=== PATIENT | male | born 1990 | race African-American/Black ===

== ENCOUNTER 2023-07-17 09:04 | Outpatient (AMB) | payer MEDICARE, SELFPAY ==
--- NOTE | 2023-07-17 09:32 | A.OFFVIS_ITS ---
VS Expanded 07/17/23 09:33 07/24/23 12:30 Height 5 ft 9 in 5 ft 9 in Weight 255 lb 4.725 oz 255 lb BMI 37.7 37.7 Intake Visit Reasons: Obesity/ CONFIRMED Nutrition Presentation Details: Pt presents for MNT f/u for obesity. The Pt was referred by Dr. 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 reports Pt has increased appetite and is constantly eating at any given time Pt verbalizes foods lower in calories/vegetables Reports not recognizing hunger as the majority of the time has increased appetite BS Monitoring Most Recent Diabetes Results: No Data to Display DXX-Cqovrvt-Ml.Averyor Equation Height: 5 ft 9 in Weight: 255 lb Resting Metabolic Rate: 2098.44 Calculated Activity Level: Sedentary Calories Needed to Maintain Weight: 2518.13 Diagnosis Nutrition problem #1: excessive energy intake As related to (etiology) #1: diagnosis As evidenced by (sign/symptom) #1: high BMI (37.7 on 07/2023) Monitoring/Goals Nutrition problem monitoring: weight and oral fluids [facility] Medical History (Updated 07/24/23 @ 12:45 by Radha Snyder, RD, LDN) GERD (gastroesophageal reflux disease) ADHD Assessment & Plan Assessment & Plan (1) Obesity (BMI 30-39.9): Code(s): E66.9 - Obesity, unspecified Category: Medical Plan: Wt: 116 Kg ( 07/2023 ) Est kcal needs as per MSJ: 2500 (40% carb, 30% protein/fat) Est fluid needs as per 30 ml/d: 3500 Est prot per day as per 1 g/kg bw: 116 Recommend fiber intake : 8-10 g per day and gradually increase to 25-28 g per day for women and 35-38 g for men or as tolerated Recommend sodium intake per day : less than 1500 mg less than 2000 mg Educated patient on: ( R = reviewed V = verbalizes understanding N/R = needs review N/A = not applicable * Food sources of carbohydrate, adequate serving sizes and its role in various health conditions: R * Differences between complex carbohydrates a simple carbohydrates, role of fiber in diet: R V N/R * Lean protein sources of foods: R V NR * Differences between types of fats and role in diet (mono on saturated fat fatty acids, saturated fatty acids, trans fats): R V N/R * Food sources of sodium in salt and healthy modifications for heart health in kidney health: R V R/V * Vitamins and minerals: R V N/R * Healthy plate method concept: R V N/R * Physical activity: Benefits a precaution: R V N/R * Hypoglycemia protocol (rule of 15): R V N/R * Dietary prevention of Hyperglycemia: R V R/V * mindful eating: R * hydration: R * lower sugar options: R Patient Instructions: Have 3 scheduled meals and 3 snack working on reducing portion sizes and following healthy plate method Chew foods well , Drink water with meals, ok herb/fruit infused water Engage in physical activity Coding Level of Care Code Nutr Indiv Intake (76436) Diagnoses Obesity (BMI 30-39.9) E66.9 Time Spent (min) 30
[2023-07-17 09:33] VITALS: BMI 37.7
[2023-07-24 12:30] VITALS: BMI 37.7
== END 2023-07-17 10:35 | disposition home or self-care (01) ==
PROVIDERS: PCP Internal Medicine; Visit Provider Dietitian, Registered
DX: E66.9 Obesity, unspecified (principal)

== ENCOUNTER → 2023-07-17 09:04 | Outpatient (BNVA) | payer MEDICARE, SELFPAY | PROVIDERS: PCP Internal Medicine; Visit Provider Dietitian, Registered | DX: E66.9 Obesity, unspecified (principal); Z68.37 Body mass index [BMI] 37.0-37.9, adult; Z71.3 Dietary counseling and surveillance | CPT/HCPCS: 97802 ==

== ENCOUNTER 2023-08-28 09:39 | Outpatient (AMB) | payer MEDICARE, SELFPAY ==
[2023-08-28 10:17] VITALS: BMI 37.6
--- NOTE | 2023-08-28 10:17 | A.OFFVIS_ITS ---
VS Expanded 08/28/23 10:17 Height 5 ft 9 in Weight 254 lb 10.142 oz BMI 37.6 Intake Visit Reasons: Pre-DM/LVM Nutrition Presentation Details: Pt presents for MNT f/u for obesity. Pt presents with complex care nurse practitioner during this appointment taker off braker machine reports Working on keeping an eating schedule and providing salads prior to meals. Pt reports enjoying the meals Breakfast B:cereal with 2% milk and banana L: salad and sandwich with vegetables, fruit and milk 2% D: vegetables, rice/chicken or burger and fruit , sariah l snack: low sugar cereal or yogurt or 1/2 sand other snack low sugar Popsicle Pt denies constipation/diarrhea physical activity : on - walking /treadmill BS Monitoring Most Recent Diabetes Results: No Data to Display [facility] Medical History (Updated 07/24/23 @ 12:45 by Radha Snyder, RD, LDN) GERD (gastroesophageal reflux disease) ADHD Assessment & Plan Assessment & Plan (1) Obesity (BMI 30-39.9): Code(s): E66.9 - Obesity, unspecified Category: Medical Plan: Wt: 116 Kg ( 07/2023 ), 116kg (08/2023) Est kcal needs as per MSJ: 2500 (40% carb, 30% protein/fat) Est fluid needs as per 30 ml/d: 3500 Est prot per day as per 1 g/kg bw: 116 Recommend fiber intake : 8-10 g per day and gradually increase to 25-28 g per day for women and 35-38 g for men or as tolerated Recommend sodium intake per day : less than 1500 mg less than 2000 mg Educated patient on: ( R = reviewed V = verbalizes understanding N/R = needs review N/A = not applicable * Food sources of carbohydrate, adequate serving sizes and its role in various health conditions: R * Differences between complex carbohydrates a simple carbohydrates, role of fiber in diet: R V N/R * Lean protein sources of foods: R V NR * Differences between types of fats and role in diet (mono on saturated fat fatty acids, saturated fatty acids, trans fats): R V N/R * Food sources of sodium in salt and healthy modifications for heart health in kidney health: R V R/V * Vitamins and minerals: R V N/R * Healthy plate method concept: R V N/R * Physical activity: Benefits a precaution: R V N/R * Hypoglycemia protocol (rule of 15): R V N/R * Dietary prevention of Hyperglycemia: R V R/V * mindful eating: R * hydration: R * lower sugar options: R Patient Instructions: Continue working on meal schedule Work on Reducing on amount of fat in the foods (dilute dressings with vinegar and water , reduce on amount of butter/sourcream, cheese/sauces and the like, removing skin, reducing on fried foods items) Increase in physical activity, waking 2 times a week instead of once/week Coding Level of Care Code Nutr Indiv Subseq (61923) Diagnoses Obesity (BMI 30-39.9) E66.9 Time Spent (min) 30
== END 2023-08-28 10:47 | disposition home or self-care (01) ==
PROVIDERS: PCP Internal Medicine; Visit Provider Dietitian, Registered
DX: E66.9 Obesity, unspecified (principal)

== ENCOUNTER → 2023-08-28 09:39 | Outpatient (BNVA) | payer MEDICARE, SELFPAY | PROVIDERS: PCP Internal Medicine; Visit Provider Dietitian, Registered | DX: R73.03 Prediabetes (principal); E66.9 Obesity, unspecified; Z68.37 Body mass index [BMI] 37.0-37.9, adult; Z71.3 Dietary counseling and surveillance | CPT/HCPCS: 97803 ==

== ENCOUNTER 2023-10-02 10:13 | Outpatient (AMB) | payer MEDICARE, SELFPAY ==
[2023-10-02 10:34] VITALS: BMI 37.7
--- NOTE | 2023-10-02 10:34 | A.OFFVIS_ITS ---
VS Expanded 10/02/23 10:34 Height 5 ft 9 in Weight 255 lb 8.252 oz BMI 37.7 Intake Visit Reasons: Obesity-lvm Nutrition Presentation Details: Pt presents for mNT f/u for obesity Pt reports working on having set meal times /snacks Having salads/increased fiber in the meals Lately keeping sedentary , none additional activity after work BS Monitoring Most Recent Diabetes Results: No Data to Display [facility] Medical History (Updated 07/24/23 @ 12:[address], LDN) GERD (gastroesophageal reflux disease) ADHD Assessment & Plan Assessment & Plan (1) Obesity (BMI 30-39.9): Code(s): E66.9 - Obesity, unspecified Category: Medical Plan: Wt: 116 Kg ( 07/2023 ), 116kg (08/2023), 115 (09/2023) Est kcal needs as per MSJ: 2500 (40% carb, 30% protein/fat) Est fluid needs as per 30 ml/d: 3500 Est prot per day as per 1 g/kg bw: 116 Recommend fiber intake : 8-10 g per day and gradually increase to 25-28 g per day for women and 35-38 g for men or as tolerated Recommend sodium intake per day : less than 1500 mg less than 2000 mg Educated patient on: ( R = reviewed V = verbalizes understanding N/R = needs review N/A = not applicable * Food sources of carbohydrate, adequate serving sizes and its role in various health conditions: R * Differences between complex carbohydrates a simple carbohydrates, role of fiber in diet: R V N/R * Lean protein sources of foods: R V NR * Differences between types of fats and role in diet (mono on saturated fat fatty acids, saturated fatty acids, trans fats): R V N/R * Food sources of sodium in salt and healthy modifications for heart health in kidney health: R V R/V * Vitamins and minerals: R V N/R * Healthy plate method concept: R V N/R * Physical activity: Benefits a precaution: R V N/R * Hypoglycemia protocol (rule of 15): R V N/R * Dietary prevention of Hyperglycemia: R V R/V * mindful eating: R * hydration: R * lower sugar options: R Patient Instructions: walk once a day for 45 min to 1 hour in the evening Continue working on setting meal time/snack time, allowing body to wait until meal/snack time Coding Level of Care Code Nutr Indiv Subseq (18979) Diagnoses Obesity (BMI 30-39.9) E66.9 Time Spent (min) 30
== END 2023-10-02 11:07 | disposition home or self-care (01) ==
PROVIDERS: PCP Internal Medicine; Visit Provider Dietitian, Registered
DX: E66.9 Obesity, unspecified (principal)

== ENCOUNTER → 2023-10-02 10:13 | Outpatient (BNVA) | payer MEDICARE, SELFPAY | PROVIDERS: PCP Internal Medicine; Visit Provider Dietitian, Registered | DX: E66.9 Obesity, unspecified (principal); Z68.37 Body mass index [BMI] 37.0-37.9, adult; Z71.3 Dietary counseling and surveillance | CPT/HCPCS: 97803 ==

== ENCOUNTER 2024-01-10 09:49 | Outpatient (AMB) | payer MEDICARE, SELFPAY ==
[2024-01-10 10:30] VITALS: BMI 35.8
--- NOTE | 2024-01-10 10:30 | A.OFFVIS_ITS ---
VS Expanded 01/10/24 10:30 Height 5 ft 9 in Weight 242 lb 4.608 oz BMI 35.8 Intake Visit Reasons: Obesity/CONFIRMED Nutrition Presentation Details: Pt presents for MNT for f/u for obesity. Pt has T2DM and is currenlty on mtformin 1000 mg twice/day Staff reports Pt bg after meals are less thn 130 , working on reducing on pastries and sugary foods. Pt is trying and doing well. BS Monitoring Most Recent Diabetes Results: No Data to Display [facility] Medical History (Updated 07/24/23 @ 12:[address], LDN) GERD (gastroesophageal reflux disease) ADHD Assessment & Plan Assessment & Plan (1) Obesity (BMI 30-39.9): Code(s): E66.9 - Obesity, unspecified Category: Medical Plan: Wt: 116 Kg ( 07/2023 ), 116kg (08/2023), 115 (09/2023), 110 (01/26) Est kcal needs as per MSJ: 2500 (40% carb, 30% protein/fat) Est fluid needs as per 30 ml/d: 3500 Est prot per day as per 1 g/kg bw: 116 Recommend fiber intake : 8-10 g per day and gradually increase to 25-28 g per day for women and 35-38 g for men or as tolerated Recommend sodium intake per day : less than 1500 mg less than 2000 mg Educated patient on: ( R = reviewed V = verbalizes understanding N/R = needs review N/A = not applicable * Food sources of carbohydrate, adequate serving sizes and its role in various health conditions: R * Differences between complex carbohydrates a simple carbohydrates, role of fiber in diet: R V N/R * Lean protein sources of foods: R V NR * Differences between types of fats and role in diet (mono on saturated fat fatty acids, saturated fatty acids, trans fats): R V N/R * Food sources of sodium in salt and healthy modifications for heart health in kidney health: R V R/V * Vitamins and minerals: R V N/R * Healthy plate method concept: R V N/R * Physical activity: Benefits a precaution: R V N/R * Hypoglycemia protocol (rule of 15): R V N/R * Dietary prevention of Hyperglycemia: R * mindful eating: R * hydration: R * lower sugar options: R Patient Instructions: continue working on choosing high fiber foods (cucumbers, carrots, apples, pumpkin) REcommend PCP monitoring for b vitamin deficiency now that the Pt is on metformin Coding Level of Care Code Nutr Indiv Subseq (36233) Diagnoses Obesity (BMI 30-39.9) E66.9 Time Spent (min) 20
== END 2024-01-10 10:59 | disposition home or self-care (01) ==
LOC: HO.ENCR 09:50
PROVIDERS: PCP Internal Medicine; Visit Provider Dietitian, Registered
DX: E66.9 Obesity, unspecified (principal)

== ENCOUNTER → 2024-01-10 09:49 | Outpatient (BNVA) | payer MEDICARE, SELFPAY | PROVIDERS: PCP Internal Medicine; Visit Provider Dietitian, Registered | DX: E66.9 Obesity, unspecified (principal); Z68.35 Body mass index [BMI] 35.0-35.9, adult; Z71.3 Dietary counseling and surveillance | CPT/HCPCS: 97803 ==

== ENCOUNTER 2024-06-30 08:45 | Outpatient (AMB) | payer MEDICARE, SELFPAY ==
--- OUTSIDE RECORDS SUMMARY | 2024-06-30 09:17 | XMS_ITS | Clinical Summary ---
Author Organization [facility] [employer] [facility] Address [address] [place], [place] [address] Phone Care Team Providers Care Leather Fitter Name Role Phone Jeevan Marks MD Primary Care Provider [phone] Allergies No known active allergies Medications omega-3 fatty acids 500 mg capsule Take 1 capsule by mouth 2 (two) times a day with meals. 05/29/19 24 Active omeprazole (PriLOSEC) [address] capsule Take 1 capsule (20 mg total) by mouth 1 (one) time each day. 09/05/19 24 Active amitriptyline (ELAVIL) 25 mg tablet Take 1 tablet (25 mg total) by mouth at bedtime. 09/23/19 23 Active methylphenidate (Concerta) 18 mg ER tablet 11/14/19 23 Active methylphenidate (Concerta) 54 mg 24 hr tablet 11/14/19 23 Active blood-glucose meter kit glucose monitoring kit (FREESTYLE) monitoring kit Check sugars once daily E11.9, Disp-1 Kit, R-0, IOANA Active metFORMIN XR (GLUCOPHAGE-XR) 500 mg 24 hr tablet Take 2 tablets (1,000 mg total) by mouth 2 (two) times a day with meals. Active fluticasone propionate (FLONASE) 50 mcg/actuation nasal spray Administer 2 sprays into each nostril 1 (one) time each day. Active cetirizine (ZyrTEC) 10 mg tablet Take 1 tablet (10 mg total) by mouth 1 (one) time each day. Active rosuvastatin (CRESTOR) 10 mg tabletIndications:Pur e hyperglyceridemia TAKE 1 TABLET BY MOUTH ONCE DAILY 90 tablet 1 02/05/20 24 Active glucose blood test strip Check sugars once daily E11.9 100 each 2 03/20/19 25 Active freestyle (FreeStyle Lancets) 28 gauge lancets Check sugars once daily E11.9, Disp-100 Each, R-2, IOANA 100 each 2 03/20/19 25 Active triamcinolone (KENALOG) 0.1 % cream Apply to affected area 1-2 times daily as needed. Avoid face and groin. 30 g 1 05/08/19 25 026 Active Active Problems Problem Noted Date Diagnosed Date Chest pain 01/11/2024 Assessment & Plan (01/11/2024 10:54 AM EST): It is very hard to obtain a proper history from the patient. Not sure whether this pain is exertional or not. He is young but also has multiple risk factors including ongoing smoking, diabetes mellitus type 2 and hypertriglyceridemia. Consider an exercise stress test for him. Follow-up after the stress test. Orders: Exercise stress test; Future Tachycardia, unspecified 01/09/2024 Assessment & Plan (01/11/2024 10:54 AM EST): Sinus tachycardia. No atrial flutter or fibrillation on the 24-hour Holter monitor. Orders: ECG 12 lead LVH (left ventricular hypertrophy) 04/19/2023 Overview (12/04/2023): Mild. Inconsistent with CPAP Solis esophagus 03/19/2023 Assessment & Plan (05/07/2024 10:24 AM EST): Continue omeprazole. Pure hypertriglyceridemia 07/03/2022 Assessment & Plan (05/07/2024 10:24 AM EST): Continue current regimen of rosuvastatin and omega-3. Assessment & Plan (01/11/2024 10:54 AM EST): Total cholesterol and LDL levels are within normal limit but triglyceride level is elevated. This could be due to uncontrolled diabetes mellitus. Emphasized on dietary modification. Do not want to start on any statin at this time considering normal LDL and attempt for diabetes control with metformin. Obstructive sleep apnea 07/13/2021 Overview (12/04/2023): [facility] split-night polysomnogram 05/29/2021. Weight 236; BMI 35. AHI 113. 1 central apnea, 97 obstructive apneas and 88 hypopneas. Average oxygen saturation 91% with oxygen humaira 76%. Interpretation of CPAP treatment portion of study: Obstructive sleep apnea was resolved with CPAP at pressures of 10 and 12. Obstructive sleep apnea-severe with mostly obstructive apneas and hypopneas; CPAP at 12 recommended based on 2021 split-night polysomnogram. Gastroesophageal reflux disease 04/16/2019 ADHD 04/10/2017 Overview (12/04/2023): Dx age 3 Methylphenidate, rohit oseguera Type 2 diabetes mellitus wit h hyperglycemia (CMS/[facility] V24, CMS/[facility] V28) Assessment & Plan (05/07/2024 10:24 AM EST): Diabetes stable. Continue current med of metformin. Followed up with endocrinology. Encounters Date Type Department Care Team Description 05/07/2024 9:45 AM EST Office Visit Internal Medicine - [address] [address] Jeevan Marks MD MILTON (obstructive sleep apnea) (Primary Dx); Type 2 diabetes mellitus with hyperglycemia, without long-term current use of insulin (CMS/[facility] V24, CMS/[facility] V28); Pure hypertriglyceridemia; Solis's esophagus without dysplasia; Skin rash; Immunization due from Last 3 Months Immunizations Name Administration Dates Next Due Influenza Quadravalent, MDCK , 0.5ml, preservative free (Flucelvax) 6mo and older 02/07/2023,12/31/2017 Influenza trivalent, MDCK, 0 .5mL, preservative free (Flucelvax) 6mo and older 05/07/2024 Influenza, Unspecified 11/17/2020 Tdap Tetanus diptheria acell ular pertussis (Boostrix; Adacel) 7yo and older 12/31/2017 Medical History Medical History Date Comments LVH (left ventricular hypertrophy) GERD (gastroesophageal reflux disease) Hypertriglyceridemia Sleep apnea Solis esophagus Adhd [id number] transgender person Has not undergone surgery MILTON (obstructive sleep apnea) Social History Tobacco Use Types Packs/Day Years Used Date Smoking Tobacco: Every Day Cigarettes 1 11.3 Started: 2013 Passive Smoke Exposure: Never Smokeless Tobacco: Never Tobacco Cessation:Ready to Q uit: Not Asked; Counseling Given: Not Answered Alcohol Use Standard Drinks/Week Comments Not Currently 0 (1 standard drink = 0.6 oz pur e alcohol) Sex and Gender Information Value Date Recorded Sex Assigned at Not on file Legal Sex Male 3:21 PM EST Gender Identity Not on file Sexual Orientation Not on file Obstetrics History Last Filed Vital Signs Vital Sign Reading Time Taken Comments Blood Pressure 122/84 05/07/2024 9:46 AM EST Pulse 100 05/07/2024 9:46 AM EST Temperature 35.7 ??C (96.3 ??F) 03/20/2024 9:55 AM ES T Respiratory Rate - - Oxygen Saturation 96% 03/20/2024 9:55 AM EST Inhaled Oxygen Concentration - - Weight 113 kg (249 lb) 05/07/2024 9:46 AM EST Height 175.3 cm (5' 9 ) 05/07/2024 9:46 AM EST Body Mass Index 36.77 05/07/2024 9:46 AM EST Plan of Treatment Upcoming Encounters Date Type Department Care Team (Late st Contact Info) Description 07/18/2024 9:40 AM EDT Office Visit Endocrinology - [place] [address] [place] [phone] Cierra Crawley PA [address] [place], [place] 07/25/2024 11:30 AM EDT Office Visit Internal Medicine - [address] [place] [address] Jeevan Marks MD [address] [place] [phone] 11/07/2024 9:45 AM EDT Office Visit Internal Medicine - [address] [phone] Jeevan Marks MD [address] [place] [phone] 12/22/2024 2:40 PM EDT Office Visit [facility] [place] [id number] Shani Cantu NP [address] [place] [address] [place] [address] Health Maintenance Due Date Last Done Comments Diabetes: Annual Foot Exam 2001 Hepatitis B Vaccines (1 of 3 - 19+ 3-dose series) 2010 Pneumococcal Vaccine: Pediatrics (0 to 5 Years) and At-Risk Patients (6 to 64 Years) (1 of 2 - PCV) 2010 Depression Screening 02/11/2022 HIV Screening 02/11/2022 Hepatitis C Screening 02/11/2022 Medicare Annual Wellness Visit 02/11/2022 Social Influencers of Health Screening 02/11/2022 COVID-19 Vaccine ( season) 2023 07/17/2020, 06/26/2020 Diabetes: Blood Sugar Control Test (HGBA1C) 09/15/2024 03/18/2024, 10/19/2023, 10/19/2023 Diabetes: Annual GFR (Glomerular Filtration Rate) 03/18/2025 03/18/2024 Diabetes: Annual Urine Albumin-Creatinine Ratio (uACR) 03/19/2025 03/19/2024 Diabetes: Annual Retina Eye Exam 06/19/2025 06/19/2024 DTaP,Tdap,and Td Vaccines (2 - Td or Tdap) 01/01/2028 12/31/2017 Cholesterol Screening (Lipid Panel) 03/18/2029 03/18/2024, 10/19/2023, 10/19/2023 Influenza Vaccine Completed 05/07/2024, , 11/17/2020, Additional history exists HIB Vaccines Aged Out No longer eligi ble based on patient's age to complete this topic HPV Vaccines Aged Out No longer eligi ble based on patient's age to complete this topic Hepatitis A Vaccines Aged Out No long er eligible based on patient's age to complete this topic IPV Vaccines Aged Out No longer eligi ble based on patient's age to complete this topic MMR Vaccines Aged Out No longer eligi ble based on patient's age to complete this topic Meningococcal ACWY Vaccine Aged Out N o longer eligible based on patient's age to complete this topic Meningococcal B Vaccine Aged Out No l onger eligible based on patient's age to complete this topic RSV Immunization Patients Under 20 months Aged Out No longer eligible based on patient's age to complete this topic Varicella Vaccines Aged Out No longer eligible based on patient's age to complete this topic Procedures Procedure Name Priority Date/Time Associated Diagnosis Comments EXTERNAL DIABETIC RETINA EYE EXAM 06/19/2024 MICROALBUMIN CREATININE URINE RATIO Routine 03/19/2024 9:14 AM EST Type II or unspecified type diabetes mellitus with renal manifestations, uncontrolled(250.42 ) (CMS/HCC V24, CMS/[facility] V28) COMPREHENSIVE METABOLIC PANEL Routine 03/18/2024 9:27 AM EST Type II or unspecified type diabetes mellitus with renal manifestations, uncontrolled(250.42 ) (CMS/HCC V24, CMS/[facility] V28) HEMOGLOBIN A1C Routine 03/18/2024 9:27 AM EST Type II or unspecified type diabetes mellitus with renal manifestations, uncontrolled(250.42 ) (CMS/HCC V24, CMS/HCC V28) LIPID PANEL WITH REFLEX TO DIRECT LDL Routine 03/18/2024 9:27 AM EST Type II or unspecified type diabetes mellitus with renal manifestations, uncontrolled(250.42 ) (CMS/HCC V24, CMS/HCC V28) from Last 3 Months or Most Recently Relevant to Health Maintenance Results * External Diabetic Retina Eye Exam Report (06/19/2024) Anatomical Region Laterality Modality Ultrasound us Provider [facility] US PROCEDURES Final Result * Microalbumin creatinine urine ratio (03/19/2024 9:14 AM EST) Creatinine, Urine 89.0 mg/dL LAB CHEMISTRY METHOD 03/19/2024 1:20 PM [facility] Microalb, Ur 5.9 0.0 - 29.0 mg/L LAB CHEMISTRY METHOD 03/19/2024 1:20 PM [facility] Microalb/Creat Ratio 7 <30 mg/g creat LAB CHEMISTRY METHOD 03/19/2024 1:20 PM [facility] Urine Urine specimen obtained by clean catch procedure / Unknown Non-blood Collection / Unknown 03/19/2024 9:14 AM EST 03/19/2024 9:14 AM EST Cierra GRIFFIN LAB URINE ORDERABLES Final Resul t [facility] [address] [place] [address], [place] [phone] * (ABNORMAL) Lipid panel with reflex to direct LDL (03/18/2024 9:27 AM EST) Cholesterol 133 0 - 200 mg/dL LAB CHEMISTRY METHOD 03/18/2024 4:24 PM [facility] Triglycerides 323(H) 0 - 150 mg/dL LAB CHEMISTRY METHOD 03/18/2024 4:24 PM [facility] HDL 30(L) >=40 mg/dL LAB CHEMISTRY METHOD 03/18/2024 4:24 PM [facility] LDL Calculated 38 0 - 100 mg/dL LAB CHEMISTRY METHOD 03/18/2024 4:24 PM [facility] VLDL Cholesterol Henok 64.6 mg/dL LAB CHEMISTRY METHOD 03/18/2024 4:24 PM EST [facility] Non HDL Chol. (LDL+VLDL) 103 <145 mg/dL LAB CHEMISTRY METHOD 03/18/2024 4:24 PM [facility] Chol/HDL Ratio 4.4 0.0 - 4.4 LAB CHEMISTRY METHOD 03/18/2024 4:24 PM [facility] Blood Venous blood specimen / Unknown Venipuncture / Unknown 03/18/2024 9:27 AM EST 03/18/2024 9:27 AM EST us Cierra GRIFFIN LAB BLOOD ORDERABLES Final Resul t Performing Organization Address [facility]/ZIP Co de Phone Number [facility] [address] [place] [address], [place] [phone] * Hemoglobin A1c (03/18/2024 9:27 AM EST) Hemoglobin A1C 6.1 <6.5 % LAB CHEMISTRY METHOD 03/18/2024 9:27 PM [facility] Mean Bld Glu Estim. 128 mg/dL LAB CHEMISTRY METHOD 03/18/2024 9:27 PM [facility] Blood Venous blood specimen / Unknown Venipuncture / Unknown 03/18/2024 9:27 AM EST 03/18/2024 9:27 AM EST us Cierra GRIFFIN LAB BLOOD ORDERABLES Final Resul t Performing Organization Address City/[facility]/ZIP Co de Phone Number [facility] [address] [place] [address], [place] [phone] * Comprehensive metabolic panel (03/18/2024 9:27 AM EST) Sodium 138 133 - 145 mmol/L LAB CHEMISTRY METHOD 03/18/2024 4:24 PM [facility] Potassium 4.4 3.5 - 5.5 mmol/L LAB CHEMISTRY METHOD 03/18/2024 4:24 PM [facility] Chloride 102 96 - 110 mmol/L LAB CHEMISTRY METHOD 03/18/2024 4:24 PM [facility] CO2 30 21 - 32 mmol/L LAB CHEMISTRY METHOD 03/18/2024 4:24 PM [facility] Anion Gap 6 3 - 11 LAB CHEMISTRY METHOD 03/18/2024 4:24 PM [facility] Glucose 99 70 - 100 mg/dL LAB CHEMISTRY METHOD 03/18/2024 4:24 PM [facility] BUN 11 5 - 25 mg/dL LAB CHEMISTRY METHOD 03/18/2024 4:24 PM [facility] Creatinine 1.12 0.70 - 1.30 mg/dL LAB CHEMISTRY METHOD 03/18/2024 4:24 PM [facility] eGFR 89 >=60 mL/min/1. 73m2 LAB CHEMISTRY METHOD 03/18/2024 4:24 PM [facility] Comment:Calculation based on the??Chronic Kidney Disease Epidemiology Collaboration (CKD-EPI) equation refit??without adjustment for race. BUN/Creatinine Ratio 9.8 LAB CHEMISTRY METHOD 03/18/2024 4:24 PM [facility] Calcium 9.5 8.5 - 10.5 mg/dL LAB CHEMISTRY METHOD 03/18/2024 4:24 PM [facility] AST (SGOT) 16 10 - 42 unit/L LAB CHEMISTRY METHOD 03/18/2024 4:24 PM [facility] ALT (SGPT) 46 10 - 60 unit/L LAB CHEMISTRY METHOD 03/18/2024 4:24 PM [facility] Alkaline Phosphatase 119 42 - 121 unit/L LAB CHEMISTRY METHOD 03/18/2024 4:24 PM [facility] Total Protein 7.7 6.0 - 8.0 g/dL LAB CHEMISTRY METHOD 03/18/2024 4:24 PM EST [facility] Albumin 4.6 3.2 - 5.0 g/dL LAB CHEMISTRY METHOD 03/18/2024 4:24 PM EST [facility] Total Bilirubin 0.6 0.0 - 1.4 mg/dL LAB CHEMISTRY METHOD 03/18/2024 4:24 PM EST [facility] Blood Venous blood specimen / Unknown Venipuncture / Unknown 03/18/2024 9:27 AM EST 03/18/2024 9:27 AM EST us Cierra GRIFFIN LAB BLOOD ORDERABLES Final Resul t [facility] [address] [place] [address], [place] [phone] from Last 3 Months or Most Recently Relevant to Health Maintenance Insurance MEDICARE MEDICAID - [place] Care Teams Leather Fitter Relationship Specialty Start Date End Date Jeevan Marks MD [address] [place] [phone] PCP - General Internal Medicine 03/07/17
[2024-06-30 09:25] VITALS: BMI 36.2
--- NOTE | 2024-06-30 09:25 | A.OFFVIS_ITS ---
VS Expanded 06/30/24 09:25 Height 5 ft 9 in Weight 245 lb 2.464 oz BMI 36.2 Intake Visit Reasons: T2DM & Obesity Medication List - Last Reconciled 07/08/[address], LDN metformin 500 mg PO BID methylphenidate HCl ER (Concerta) 54 mg PO DAILY omeprazole 20 mg PO DAILY simvastatin 10 mg PO DAILY Nutrition Presentation Details: Pt presents for MNT f/u for obesity Pt reports he is on metformin 500 mg twice a day for recent dx of T2DM Pt hx of ADHD, Sleep apnea , T2DM Pt presents with lpn care manager Pt reports keeping sedentary, working on reducing late snacks but now keeping more sedentary Tends to buy large size high sugar beverages BS Monitoring Most Recent Diabetes Results: 2 No Data to Display [facility] Medical History (Updated 07/08/24 @ 20:[address], BULLN) T2DM (type 2 diabetes mellitus) Sleep apnea GERD (gastroesophageal reflux disease) ADHD Assessment & Plan Assessment & Plan (1) Obesity (BMI 30-39.9): Comment: Pt with T2DM on metformin 1000 mg/d Code(s): E66.9 - Obesity, unspecified Category: Medical Plan: Wt: 116 Kg ( 07/2023 ), 116kg (08/2023), 115 (09/2023), 110 (01/26), 111 kg (06/27) Est kcal needs as per MSJ: 2500 (40% carb, 30% protein/fat) Est fluid needs as per 30 ml/d: 3500 Est prot per day as per 1 g/kg bw: 116 Recommend fiber intake : 8-10 g per day and gradually increase to 25-28 g per day for women and 35-38 g for men or as tolerated Recommend sodium intake per day : less than 1500 mg less than 2000 mg Educated patient on: ( R = reviewed V = verbalizes understanding N/R = needs review N/A = not applicable * Food sources of carbohydrate, adequate serving sizes and its role in various health conditions: R * Differences between complex carbohydrates a simple carbohydrates, role of fiber in diet: R V N/R * Lean protein sources of foods: R V NR * Differences between types of fats and role in diet (mono on saturated fat fatty acids, saturated fatty acids, trans fats): R V N/R * Food sources of sodium in salt and healthy modifications for heart health in kidney health: R V R/V * Vitamins and minerals: R V N/R * Healthy plate method concept: R V N/R * Physical activity: Benefits a precaution: R V N/R * Hypoglycemia protocol (rule of 15): R V N/R * Dietary prevention of Hyperglycemia: R * mindful eating: R * hydration: R * lower sugar options: R Patient Instructions: Choose low sugar beverages-read the food labels (5 g total carb or less) Must engage in physical activity , walking 1 hour daily Coding Level of Care Code Nutr Indiv Subseq (99653) Diagnoses Obesity (BMI 30-39.9) E66.9 Time Spent (min) 20
== END 2024-06-30 10:05 | disposition home or self-care (01) ==
LOC: HO.ENCR 08:45
PROVIDERS: PCP Internal Medicine; Visit Provider Dietitian, Registered
DX: E66.9 Obesity, unspecified (principal)

== ENCOUNTER → 2024-06-30 08:45 | Outpatient (BNVA) | payer MEDICARE, SELFPAY | PROVIDERS: PCP Internal Medicine; Visit Provider Dietitian, Registered | DX: E11.9 Type 2 diabetes mellitus without complications (principal); E66.9 Obesity, unspecified; Z71.3 Dietary counseling and surveillance; Z68.36 Body mass index [BMI] 36.0-36.9, adult | CPT/HCPCS: 97803 ==

== ENCOUNTER 2025-01-05 08:48 | Outpatient (AMB) | payer MEDICARE, SELFPAY ==
--- OUTSIDE RECORDS SUMMARY | 2025-01-05 09:25 | XMS_ITS | Clinical Summary ---
Author Organization [facility] [employer] Address [address] [place], [place] [address] Phone Care Team Providers Care Paste Thinner Name Role Phone Heidi Cade MD Primary Care Provider Allergies No known active allergies Medications omega-3 fatty acids 500 mg capsule Take 1 capsule by mouth 2 (two) times a day with meals. 05/29/19 24 Active amitriptyline (ELAVIL) 25 mg tablet Take 1 tablet (25 mg total) by mouth at bedtime. 09/23/19 23 Active methylphenidate (Concerta) 18 mg ER tablet 20 mg 3 (three) times a day. 11/14/19 23 Active blood-glucose meter kit glucose monitoring kit (FREESTYLE) monitoring kit Check sugars once daily E11.9, Disp-1 Kit, R-0, IOANA Active fluticasone propionate (FLONASE) 50 mcg/actuation nasal spray Administer 2 sprays into each nostril 1 (one) time each day. Active glucose blood test strip Check sugars once daily E11.9 100 each 2 03/20/19 25 Active freestyle (FreeStyle Lancets) 28 gauge lancets Check sugars once daily E11.9, Disp-100 Each, R-2, IOANA 100 each 2 03/20/19 25 Active triamcinolone (KENALOG) 0.1 % cream Apply to affected area 1-2 times daily as needed. Avoid face and groin. 30 g 1 05/08/19 25 026 Active rosuvastatin (CRESTOR) 10 mg tabletIndications:Pur e hyperglyceridemia TAKE 1 TABLET BY MOUTH ONCE DAILY 30 tablet 5 07/30/19 25 Active metFORMIN XR (GLUCOPHAGE-XR) 500 mg 24 hr tablet TAKE 2 TABLETS BY MOUTH two (2) times a day. TAKE WITH FOOD 360 tablet 1 08/28/19 25 Active omeprazole (PriLOSEC) [address] capsuleIndications:Ga stro-esophageal reflux disease without esophagitis TAKE 1 CAPSULE BY MOUTH ONCE DAILY 30 capsule 5 09/16/19 25 Active cetirizine (ZyrTEC) 10 mg tablet Take 1 tablet (10 mg total) by mouth 1 (one) time each day. 90 each 11/08/19 25 Active Active Problems Problem Noted Date Diagnosed [...] Future Tachycardia, unspecified 01/09/2024 Assessment & Plan (12/22/2024 3:37 PM EDT): Patient has a history of sinus tachycardia. His ECG today showing a heart rate of 96 bpm. On recheck his heart rate was 80 bpm. His ECG is showing sinus rhythm with occasional PVCs. There is nonspecific T wave flattening in the lateral leads, yet patient is asymptomatic, he was advised to contact the office if he were to develop symptoms as he previously reported. He had a negative ETT in January 2024. Will continue to monitor. Orders: ECG 12 lead Assessment & Plan (01/11/2024 10:54 AM EST): Sinus tachycardia. No atrial flutter or fibrillation on the 24-hour Holter monitor. Orders: ECG 12 lead LVH (left ventricular hypertrophy) 04/19/2023 Overview (12/04/2023): Mild. Inconsistent with CPAP Pure hypertriglyceridemia 07/03/2022 Assessment & Plan (12/22/2024 3:37 PM EDT): Continue on rosuvastatin. On review of his labs, his triglycerides were noted to be quite elevated. We discussed the dietary changes suggested by his PCP. I have reviewed with the patient the importance of a heart healthy lifestyle which includes eating a low-fat low-salt diet, getting regular exercise, maintaining a healthy weight, not smoking, and following up with routine medical care. Assessment & Plan (11/07/2024 10:28 AM EDT): Follow low-cholesterol diet. Continue rosuvastatin and omega-3 fatty acids. Orders: Lipid panel with reflex to direct LDL; Future Assessment & Plan (05/07/2024 10:24 AM EST): [...] metformin. Obstructive sleep apnea 07/13/2021 Overview (12/04/2023): [facility] split-night polysomnogram 05/29/2021. Weight 236; BMI 35. [...] 2021 split-night polysomnogram. Gastroesophageal reflux disease 04/16/2019 Assessment & Plan (11/07/2024 6:26 PM EDT): Reviewed EGD results from 2023, negative for Solis's esophagus. Continue omeprazole 20mg daily as directed Patient is asymptomatic. Orders: Ambulatory referral to Gastroenterology ADHD 04/10/2017 Overview (12/04/2023): Dx age 3 Methylphenidate, rohit oseguera Type 2 diabetes mellitus wit h hyperglycemia ([facility] V24, [facility] V28) Assessment & Plan (11/07/2024 10:28 AM EDT): Diabetic diet discussed. Continue currently on metformin. He has been monitored by endocrinology. Assessment & Plan (05/07/2024 10:24 AM EST): Diabetes stable. Continue current med of metformin. Followed up with endocrinology. Encounters Date Type Department Care Team Description 12/22/2024 2:40 PM EDT Office Visit [facility] [address] [place] [address] Shani Cantu NP Tachycardia, unspecified (Primary Dx); Pure hypertriglyceridemia 11/07/2024 1:50 PM EDT Office Visit Gastroenterology - [address] [place] [id number] Taylor Sanchez PA Gastroesophageal reflux disease without esophagitis 11/07/2024 9:45 AM EDT Office Visit Internal Medicine - [address] [place] [address] Jeevan Marks MD Type 2 diabetes mellitus with hyperglycemia, without long-term current use of insulin ([facility] V24, [facility] V28) (Primary Dx); Pure hypertriglyceridemia; Seasonal allergies; Solis's esophagus without dysplasia from Last 3 Months Immunizations Immunization Administration Dates Next Due Influenza Quadravalent, MDCK , 0.5ml, preservative free (Flucelvax) 6mo and older 02/07/2023,12/31/2017 Influenza trivalent, MDCK, 0 .5mL, preservative free (Flucelvax) 6mo and older 05/07/2024 Influenza, Unspecified 11/17/2020 Tdap Tetanus diptheria acell ular pertussis (Boostrix; Adacel) 7yo and older 12/31/2017 Surgical History Surgery Date Site/Laterality Comments ESOPHAGOGASTRODUODENOSCOPY 03/19/2023 Medical History Medical History Date Comments LVH (left ventricular hypertrophy) GERD (gastroesophageal reflux disease) Hypertriglyceridemia Sleep apnea Solis esophagus Adhd [id number] transgender person Has not undergone surgery MILTON (obstructive sleep apnea) Social History Tobacco Use Types Packs/Day Years Used Date Smoking Tobacco: Every Day Cigarettes 1 11.8 Started: 2013 Passive Smoke Exposure: Never Smokeless [...] Sign Reading Time Taken Comments Blood Pressure 120/78 12/22/2024 3:15 PM EDT Pulse 97 12/22/2024 3:15 PM EDT Temperature 36.7 C (98.1 F) 07/18/2024 9:37 AM EDT Respiratory Rate 18 07/18/2024 9:37 AM EDT Oxygen Saturation 96% 12/22/2024 3:15 PM EDT Inhaled Oxygen Concentration - - Weight 110 kg (243 lb) 12/22/2024 3:15 PM EDT Height 175.3 cm (5' 9 ) 12/22/2024 3:15 PM EDT Body Mass Index 35.88 12/22/2024 3:15 PM EDT Plan of Treatment Upcoming Encounters Date Type Department Care Team (Late st Contact Info) Description 2025 9:40 AM EST Office Visit Endocrinology - [place] [address] [place] [address] Cierra Crawley PA [address] [place], [place] 04/15/2025 11:00 AM EST Office Visit Internal Medicine - [address] [phone] Heidi Cade MD [address] [place] [address] Health Maintenance Due Date Last Done Comments Diabetes: Annual Foot Exam 2001 Hepatitis B Vaccines (1 of 3 - 19+ 3-dose series) 2010 Pneumococcal Vaccine: Pediatrics (0 to 5 Years) and At-Risk Patients (6 to 49 Years) (1 of 2 - PCV) 2010 HPV Vaccines (1 - 3-dose SCDM series) 2018 HIV Screening 02/11/2022 Hepatitis C Screening 02/11/2022 Social Influencers of Health Screening 02/11/2022 Depression Screening 03/05/2024 COVID-19 Vaccine ( season) 2024 07/17/2020, 06/26/2020 Influenza Vaccine (#1) 2024 , 02/07/2023, 11/17/2020, Additional history exists Diabetes: Blood Sugar Control Test (HGBA1C) 01/16/2025 07/16/2024, 03/18/2024, 10/19/2023, Additional history exists Diabetes: Annual GFR (Glomerular Filtration Rate) 03/18/2025 03/18/2024 Diabetes: Annual Urine Albumin-Creatinine Ratio (uACR) 03/19/2025 03/19/2024 Diabetes: Annual Retina Eye Exam 06/19/2025 06/19/2024 Medicare Annual Wellness Visit 07/25/2025 07/25/2024 DTaP,Tdap,and Td Vaccines (2 - Td or Tdap) 01/01/2028 12/31/2017 Cholesterol Screening (Lipid Panel) 11/11/2029 11/11/2024, 03/18/2024, 10/19/2023, Additional history exists RSV Immunization Adult Patients (1 - 1-dose 75+ series) 2066 HIB Vaccines Aged Out No longer eligi [...] Procedure Name Priority Date/Time Associated Diagnosis Comments ECG 12-LEAD Routine 12/22/2024 3:33 PM EDT Tachycardia, unspecified CBC WITH AUTO DIFFERENTIAL Routine 11/11/2024 9:29 AM EDT Solis's esophagus without dysplasia THYROID STIMULATING HORMONE WITH REFLEX TO FREE T4 AND FREE T3 Routine 11/11/2024 9:29 AM EDT Exophthalmos of right eye LIPID PANEL WITH REFLEX TO DIRECT LDL Routine 11/11/2024 9:29 AM EDT Pure hypertriglyceridemia CBC AND DIFFERENTIAL Routine 11/11/2024 9:29 AM EDT Solis's esophagus without dysplasia HEMOGLOBIN A1C Routine 07/16/2024 9:32 AM EDT Type 2 diabetes mellitus with hyperglycemia, unspecified whether meterman insulin use ([facility] V24, [facility] V28) EXTERNAL DIABETIC RETINA EYE EXAM 06/19/2024 MICROALBUMIN CREATININE URINE RATIO Routine 03/19/2024 9:14 AM EST Type II or unspecified type diabetes mellitus with renal manifestations, uncontrolled(250.42) (CMS/HCC V24, [facility] V28) COMPREHENSIVE METABOLIC PANEL Routine 03/18/2024 9:27 AM EST Type II or unspecified type diabetes mellitus with renal manifestations, uncontrolled(250.42) (CMS/HCC V24, [facility] V28) from Last 3 Months or Most Recently Relevant to Health Maintenance Results * ECG 12 lead (12/22/2024 3:33 PM EDT) 12/22/2024 3:11 PM EDT us Shani Cantu FINISH MENDER ECG ORDERABLES Final Result GEMUSE * Thyroid stimulating hormone with reflex to free t4 and free t3 (11/11/2024 9:29 AM EDT) TSH 1.97 0.40 - 4.00 mcIU/mL LAB CHEMISTRY METHOD 11/11/2024 4:[address] [facility] Blood Venous blood specimen / Unknown Venipuncture / Unknown 11/11/2024 9:29 AM EDT 11/11/2024 9:29 AM EDT Jeevan Marks MD LAB BLOOD ORDERABLES Elham l Result Performing Organization Address [place]/ZIP Co de Phone Number [facility] [address] [place] [address], [place] [phone] * (ABNORMAL) Lipid panel with reflex to direct LDL (11/11/2024 9:29 AM EDT) Cholesterol 119 0 - 200 mg/dL LAB CHEMISTRY METHOD 11/11/2024 3:[address] [facility] Triglycerides 405(H) 0 - 150 mg/dL LAB CHEMISTRY METHOD 11/11/2024 3:13 PM [facility] HDL 30(L) >=40 mg/dL LAB CHEMISTRY METHOD 11/11/2024 3:[address] [facility] LDL Calculated 8 0 - 100 mg/dL LAB CHEMISTRY METHOD 11/11/2024 3:[address] [facility] Comment: Unable to calculate when triglycerides >400 mg/dL. Estimated LDL Calculated using equation: Total cholesterol - HDL cholesterol - (Triglycerides/5) VLDL Cholesterol Henok 81 mg/dL LAB CHEMISTRY METHOD 11/11/2024 3:[address] [facility] Comment:Unable to calculate when triglycerides >400 mg/dL. Non HDL Chol. (LDL+VLDL) 89 <145 mg/dL LAB CHEMISTRY METHOD 11/11/2024 3:[address] [facility] Comment:Unable to calculate when triglycerides >400 mg/dL. Chol/HDL Ratio 4.0 0.0 - 4.4 LAB CHEMISTRY METHOD 11/11/2024 3:[address] [facility] Blood Venous blood specimen / Unknown Venipuncture / Unknown 11/11/2024 9:29 AM EDT 11/11/2024 9:29 AM EDT us Jeevan Marks MD LAB BLOOD ORDERABLES Elham estrella Result [facility] [address] [place] [address], [place] [phone] * (ABNORMAL) CBC auto differential (11/11/2024 9:29 AM EDT) WBC 11.7(H) 4.8 - 10.8 K/mcL LAB HEMETOLOGY METHOD 11/11/2024 12:[address] [facility] RBC 5.10 4.50 - 5.50 M/mcL LAB HEM[facility]OLOGY [facility] Hemoglobin 16.2 13.5 - 17.5 g/dL LAB HEMETOLOGY METHOD [facility]/11[facility]24 [facility] Hematocrit 46.9 42.0 - 54.0 % LAB HEMETOLOGY METHOD 11/11/2024 12:[address] [facility] MCV 92.0 79.0 - 98.0 FL LAB HEMETOLOGY METHOD 11/11/2024 12:12 PM [facility] MCH 31.8 27.0 - 32.0 pcg LAB HEMETOLOGY METHOD 11/11/2024 12:12 PM [facility] MCHC 34.5 32.0 - 37.0 g/dL LAB HEMETOLOGY METHOD 11/11/2024 12:12 PM [facility] RDW 11.9 11.0 - 15.0 % LAB HEMETOLOGY METHOD 11/11/2024 12:12 PM [facility] Platelets 330 130 - 400 K/mcL LAB HEMETOLOGY METHOD 11/11/2024 12:12 PM [facility] MPV 9.7 7.0 - 11.0 FL LAB HEMETOLOGY METHOD 11/11/2024 12:12 PM [facility] NRBC 0.0 <1.0 % LAB HEMETOLOGY METHOD 11/11/2024 12:12 PM [facility] NRBC Absolute 0.00 <0.10 K/mcL LAB HEMETOLOGY METHOD 11/11/2024 12:12 PM [facility] Neutrophils Relative 65.8 % LAB HEMETOLOGY METHOD 11/11/2024 12:12 PM [facility] Lymphocytes Relative 26.5 % LAB HEMETOLOGY METHOD 11/11/2024 12:12 PM [facility] Monocytes Relative 6.0 % LAB HEMETOLOGY METHOD 11/11/2024 12:12 PM [facility] Eosinophils Relative 1.0 % LAB HEMETOLOGY METHOD 11/11/2024 12:12 PM [facility] Basophils Relative 0.3 % LAB HEMETOLOGY METHOD 11/11/2024 12:12 PM [facility] Immature Granulocytes Relative 0.4 % LAB HEMETOLOGY METHOD 11/11/2024 12:12 PM [facility] Neutrophils Absolute 7.70(H) 1.50 - 7.00 K/mcL LAB HEMETOLOGY METHOD 11/11/2024 12:12 PM [facility] Lymphocytes Absolute 3.11 1.00 - 5.00 K/mcL LAB HEMETOLOGY METHOD 11/11/2024 12:[address] [facility] Monocytes Absolute 0.70 0.20 - 1.00 K/[facility] LAB HEMETOLOGY METHOD 11/11/2024 12:[address] [facility] Eosinophils Absolute 0.12 0.00 - 0.50 K/[facility] LAB HEMETOLOGY METHOD 11/11/2024 12:[address] [facility] Basophils Absolute 0.04 0.00 - 0.20 K/[facility] LAB HEMETOLOGY METHOD 11/11/2024 12:[address] [facility] Immature Granulocytes Absolute 0.05(H) 0.00 - 0.03 K/[facility] LAB HEMETOLOGY METHOD 11/11/2024 12:[address] [facility] Blood Venous blood specimen / Unknown Venipuncture / Unknown 11/11/2024 9:29 AM EDT 11/11/2024 9:29 AM EDT Jeevan Marks MD LAB BLOOD ORDERABLES Elham estrella Result [facility] [address] [place] [address], * Hemoglobin A1c (07/16/2024 9:32 AM EDT) Hemoglobin A1C 6.3 <6.5 % LAB CHEMISTRY METHOD 07/16/2024 1:[address] [facility] Mean Bld Glu Estim. 134 mg/dL LAB CHEMISTRY METHOD 07/16/2024 1:[address] [facility] Blood Venous blood specimen / Unknown Venipuncture / Unknown 07/16/2024 9:32 AM EDT 07/16/2024 9:32 AM EDT Cierra GRIFFIN LAB BLOOD ORDERABLES Final Resul t Performing Organization Address [place]/ZIP Co de Phone Number [facility] [address] [place] [address], [place] [phone] * External Diabetic Retina Eye Exam Report (06/19/2024) Anatomical Region Laterality Modality Ultrasound Provider [facility] US PROCEDURES Final Result * Microalbumin creatinine urine ratio (03/19/2024 9:14 AM EST) Creatinine, Urine 89.0 mg/dL LAB CHEMISTRY METHOD 03/19/2024 1:[address] [facility] Microalb, Ur 5.9 0.0 - 29.0 mg/L LAB CHEMISTRY METHOD 03/19/2024 1:[address] [facility] Microalb/Creat Ratio 7 <30 mg/g creat LAB CHEMISTRY METHOD 03/19/2024 1:[address] [facility] Urine Urine specimen obtained by clean catch procedure / Unknown Non-blood Collection / Unknown 03/19/2024 9:14 AM EST 03/19/2024 9:14 AM EST Cierra GRIFFIN LAB URINE ORDERABLES Final Resul t Performing Organization Address [place] Co de Phone Number [facility] [address] [place] [address], [place] [phone] * Comprehensive metabolic panel (03/18/2024 9:27 AM EST) Sodium 138 133 - 145 mmol/L LAB CHEMISTRY METHOD 03/18/2024 4:[address] [facility] Potassium 4.4 3.5 - 5.5 mmol/L LAB CHEMISTRY METHOD 03/18/2024 4:[address] [facility] Chloride 102 96 - 110 mmol/L LAB CHEMISTRY METHOD 03/18/2024 4:[address] [facility] CO2 30 21 - 32 mmol/L LAB CHEMISTRY METHOD 03/18/2024 4:24 PM [facility] Anion Gap 6 3 - 11 LAB CHEMISTRY METHOD 03/18/2024 4:24 PM [facility] Glucose 99 70 - 100 mg/dL LAB CHEMISTRY METHOD 03/18/2024 4:24 PM [facility] BUN 11 5 - 25 mg/dL LAB CHEMISTRY METHOD 03/18/2024 4:24 PM [facility] Creatinine 1.12 0.70 - 1.30 mg/dL LAB CHEMISTRY METHOD 03/18/2024 4:24 PM [facility] eGFR 89 >=60 mL/min/1. 73m2 LAB CHEMISTRY METHOD 03/18/2024 4:24 PM [facility] Comment:Calculation based on the Chronic Kidney Disease Epidemiology Collaboration (CKD-EPI) equation refit without adjustment for race. BUN/Creatinine Ratio 9.8 LAB CHEMISTRY METHOD 03/18/2024 4:24 PM [facility] Calcium 9.5 8.5 - 10.5 mg/dL LAB CHEMISTRY METHOD 03/18/2024 4:24 PM [facility] AST (SGOT) 16 10 - 42 unit/L LAB CHEMISTRY METHOD 03/18/2024 4:24 PM [facility] ALT (SGPT) 46 10 - 60 unit/L LAB CHEMISTRY METHOD 03/18/2024 4:24 PM [facility] Alkaline Phosphatase 119 42 - 121 unit/L LAB CHEMISTRY METHOD 03/18/2024 4:24 PM [facility] Total Protein 7.7 6.0 - 8.0 g/dL LAB CHEMISTRY METHOD 03/18/2024 4:24 PM [facility] Albumin 4.6 3.2 - 5.0 g/dL LAB CHEMISTRY METHOD 03/18/2024 4:24 PM [facility] Total Bilirubin 0.6 0.0 - 1.4 mg/dL LAB CHEMISTRY METHOD 03/18/2024 4:[address] [facility] Blood Venous blood specimen / Unknown Venipuncture / Unknown 03/18/2024 9:27 AM EST 03/18/2024 9:27 AM EST us Cierra GRIFFIN LAB BLOOD ORDERABLES Final Resul t [facility] [address] [place] [address], [place] [phone] from Last 3 Months or Most Recently Relevant to Health Maintenance Insurance MEDICARE MEDICAID - [place] Care Teams Paste Thinner Relationship Specialty Start Date End Date Heidi Cade MD [facility] [place] [address] PCP - General Internal Medicine 11/07/24
--- OUTSIDE RECORDS SUMMARY | 2025-01-05 09:25 | XMS_ITS ---
Author Name [facility] Organization Unknown Care Team Organization Name Specialty Phone Email Start Date End Da [facility] 10/22/2024
[2025-01-05 09:38] VITALS: BMI 36.3
--- NOTE | 2025-01-05 09:38 | A.OFFVIS_ITS ---
VS Expanded 01/05/25 09:38 Height 5 ft 9 in Weight 246 lb 0.574 oz BMI 36.3 Intake Visit Reasons: obesity t2dm Medication List - Last Reconciled 01/12/[address], LDN metformin 500 mg PO BID methylphenidate HCl ER (Concerta) 20 mg PO DAILY omega-3 fatty acids 500 mg PO BID omeprazole 20 mg PO DAILY rosuvastatin 10 mg PO DAILY Nutrition Presentation Details: Pt presents for MNT f/u for obesity Pt reports he also has T2DM and blood sugars are in 100s when monitoring in the evening before dinner Pt presents with home care worker pt typically has 3 meals/day Oatmeal or cheerios no sugar added in AM with made with 2 % milk (Pt has 2nd servings) or eggs/toast and Hashbrown , milk 2% Lunch: vegetable lasagna and side of air fried fries , water or crystal light dinner same as lunch Eating out 1 x/wk : [place] rest (eggroll, pork lomein chicken fingers, soda ) eating out : Rest omega 3 2 tabs/d500mg]] rosuvastatin 10mg/d elavil 25mg concerta 20 mg 3 x/d PFSH Medical History (Updated 07/08/24 @ 20:[address], LDN) T2DM (type 2 diabetes mellitus) Sleep apnea GERD (gastroesophageal reflux disease) ADHD Assessment & Plan Assessment & Plan (1) Obesity (BMI 30-39.9): Comment: Pt with T2DM on metformin 1000 mg/d Code(s): E66.9 - Obesity, unspecified Category: Medical Plan: Wt: 116 Kg ( 07/2023 ), 116kg (08/2023), 115 (09/2023), 110 (01/26), 111 kg (06/27), 01/27 Est kcal needs as per MSJ: 2500 (40% carb, 30% protein/fat) Est fluid needs as per 30 ml/d: 3500 Est prot per day as per 1 g/kg bw: 116 Recommend fiber intake : 8-10 g per day and gradually increase to 25-28 g per day for women and 35-38 g for men or as tolerated Recommend sodium intake per day : less than 1500 mg less than 2000 mg Educated patient on: ( R = reviewed V = verbalizes understanding N/R = needs review N/A = not applicable * Food sources of carbohydrate, adequate serving sizes and its role in various health conditions: R * Differences between complex carbohydrates a simple carbohydrates, role of fiber in diet: R V N/R * Lean protein sources of foods: R V NR * Differences between types of fats and role in diet (mono on saturated fat fatty acids, saturated fatty acids, trans fats): R V N/R * Food sources of sodium in salt and healthy modifications for heart health in kidney health: R V R/V * Vitamins and minerals: R V N/R * Healthy plate method concept: R V * Physical activity: Benefits a precaution: R * Hypoglycemia protocol (rule of 15): R V N/R * Dietary prevention of Hyperglycemia: R * mindful eating: R * hydration: R * lower sugar options: R Patient Instructions: Reduce on hidden fat and added sugars (butter, oils, sauces and similar foods) When eating out : choose fish, baked starch in place of fried and choose low sugar beverages Coding Level of Care Code Nutr Indiv Subseq (19875) Diagnoses Obesity (BMI 30-39.9) E66.9 Time Spent (min) 30
== END 2025-01-05 10:08 | disposition home or self-care (01) ==
LOC: HO.ENCR 08:48
PROVIDERS: PCP Internal Medicine; Visit Provider Dietitian, Registered
DX: E66.9 Obesity, unspecified (principal)

== ENCOUNTER → 2025-01-05 08:48 | Outpatient (BNVA) | payer MEDICARE, SELFPAY | PROVIDERS: PCP Internal Medicine; Visit Provider Dietitian, Registered | DX: E66.9 Obesity, unspecified (principal); Z68.36 Body mass index [BMI] 36.0-36.9, adult; E11.65 Type 2 diabetes mellitus with hyperglycemia; Z79.84 Long term (current) use of oral hypoglycemic drugs | CPT/HCPCS: 97803 ==